=== PATIENT | female | born 1990 | race Two or more races ===

== ENCOUNTER 2024-01-12 15:24 | Emergency (ER) | payer MEDICAID ==
[~2024-01-12] VITALS: Ht 157.5 cm; Wt 98.1 kg
[2024-01-12 15:35] VITALS: BP 151/87; PULSE 81; RESP 16; O2SAT 97
[2024-01-12 16:05] LABS: Urine Amorphous Crystal FEW /hpf (None Seen); Urine Bacteria FEW /hpf (None Seen); Urine Blood Negative /uL (Negative); Urine Clarity CLOUDY (Clear); Urine Color Colorless (Yellow); Urine Protein, UAD Negative (Negative); Urine Specific Gravity 1.014 (1.001-1.035); Urine Urobilinogen Normal (Negative); Urine WBC 22 /hpf (0 - 5)
[2024-01-12 16:19] LABS: Basophils # (auto) 0.1 10 ^3/uL (0-0.2); Basophils % (auto) 0.8 % (0.0-2.0); Eosinophils # (auto) 0.3 10 ^3/uL (0-0.8); Eosinophils % (auto) 3.1 % (0.0-7.0); Hematocrit 44.1 % (36.0-46.0); Hemoglobin 14.9 g/dL (12.2-16.2); Lymphocytes # (auto) 3.3 10 ^3/uL (0.4-5.4); Lymphocytes % (auto) 32.2 % (10.0-50.0); Mean Corpuscular Hemoglobin 30.9 pg (28.0-32.0); Mean Corpuscular Hgb Conc. 33.8 g/dL (32.0-36.0); Mean Corpuscular Volume 91.6 fL (80.0-100.0); Monocytes # (auto) 0.6 10 ^3/uL (0-1.3); Neutrophils % (auto) 57.9 % (37.0-80.0); Nucleated Red Blood Cells % 0.1 %; Red Blood Cells 4.81 10^6/uL (4.0-5.20); Red Cell Distribution Width 12.8 % (11.8-14.3); White Blood Cell 10.3 10^3/uL (4.4-10.8)
[2024-01-12 16:55] LABS: Alanine Aminotransferase 64 U/L (7-40); Albumin 4.5 g/dL (3.2-4.8); Alkaline Phosphatase 82 U/L (46-116); Anion Gap 8 (5-15); Aspartate Aminotransferase 28 U/L (13-40); BUN/Creatinine Ratio 11.9 (10.0-20.0); Bilirubin, Total 0.3 mg/dL (0.2-1.0); Blood Urea Nitrogen 7 mg/dL (9-23); Calcium 9.6 mg/dL (8.5-10.1); Carbon Dioxide 23 mmol/L (20-30); Chloride 106 mmol/L (98-107); Glucose 172 mg/dL (74-106); Potassium 3.8 mmol/L (3.5-5.1); Sodium 137 mmol/L (136-145); Total Protein 7.2 g/dL (5.7-8.2)
[2024-01-12] MEDS ORDERED: CEPH500C PO (19:11)
[2024-01-12] MEDS: ONDANSETRON ODT 4 MG TAB PO ONE (21:32)
[2024-01-12] MEDS: ACETAMINOPHEN 500 MG TAB PO ONE (21:32)
== END 2024-01-12 21:32 | disposition home or self-care (01) ==
LOC: ER 15:24
DX: N39.0 Urinary tract infection, site not specified (principal); R10.2 Pelvic and perineal pain
CPT/HCPCS: 36415; 80053; 81001; 81025; 84702; 85025

== ENCOUNTER 2024-03-17 11:26 | Emergency (ER) | payer MEDICAID ==
[~2024-03-17] VITALS: Ht 152.4 cm; Wt 97.1 kg
[~2024-03-17 11:26] MED LIST: CEPH500C PO
[2024-03-17 12:06] LABS: Urine Blood 3+ /uL (Negative); Urine Clarity Ex.Turbid (Clear); Urine Color RED (Yellow); Urine Protein, UAD 1+ (Negative); Urine Specific Gravity 1.012 (1.001-1.035); Urine Urobilinogen Normal (Negative); Urine pH 5.5 (5.0-9.0)
[2024-03-17 12:07] LABS: Urine Bacteria 2+ /hpf (None Seen); Urine WBC 20 /hpf (0 - 5)
[2024-03-17 12:31] LABS: Basophils # (auto) 0.1 10 ^3/uL (0-0.2); Basophils % (auto) 0.7 % (0.0-2.0); Eosinophils # (auto) 0.2 10 ^3/uL (0-0.8); Eosinophils % (auto) 2.4 % (0.0-7.0); Hematocrit 41.6 % (36.0-46.0); Lymphocytes # (auto) 2.9 10 ^3/uL (0.4-5.4); Lymphocytes % (auto) 34.8 % (10.0-50.0); Mean Corpuscular Hemoglobin 30.7 pg (28.0-32.0); Mean Corpuscular Hgb Conc. 33.6 g/dL (32.0-36.0); Mean Corpuscular Volume 91.3 fL (80.0-100.0); Monocytes # (auto) 0.6 10 ^3/uL (0-1.3); Monocytes % (auto) 6.6 % (0.0-12.0); Neutrophils # (auto) 4.6 10 ^3/uL (1.6-8.6); Neutrophils % (auto) 55.5 % (37.0-80.0); Red Blood Cells 4.56 10^6/uL (4.0-5.20); Red Cell Distribution Width 12.7 % (11.8-14.3); White Blood Cell 8.3 10^3/uL (4.4-10.8)
[2024-03-17] MEDS: ONDANSETRON ODT 4 MG TAB PO ONE (12:36)
[2024-03-17] MEDS: MORPHINE SULFATE INJ 2 MG/ml SYRG IM ONE (12:43)
[2024-03-17 12:45] LABS: Alanine Aminotransferase 56 U/L (7-40); Albumin 4.5 g/dL (3.2-4.8); Alkaline Phosphatase 60 U/L (46-116); Anion Gap 6 (5-15); Aspartate Aminotransferase 35 U/L (13-40); Bilirubin, Total 0.4 mg/dL (0.2-1.0); Calcium 9.2 mg/dL (8.5-10.1); Carbon Dioxide 26 mmol/L (20-30); Chloride 106 mmol/L (98-107); Glucose 93 mg/dL (74-106); Potassium 3.9 mmol/L (3.5-5.1); Sodium 138 mmol/L (136-145); Total Protein 7.4 g/dL (5.7-8.2)
[2024-03-17 13:04] LABS: INR 0.99 (0.9-1.15); Partial Thromboplastin Time 30.3 SEC (24.5-34.5); Prothrombin Time 10.5 sec (9.3-11.8)
[2024-03-17 13:10] LABS: BUN/Creatinine Ratio 8.5 (10.0-20.0); Blood Urea Nitrogen < 5 mg/dL (9-23)
[2024-03-17] MEDS ORDERED: PHEN95TA10 PO (15:36)
[2024-03-17] MEDS ORDERED: CEPH500T PO (15:36)
[2024-03-17] MEDS ORDERED: IBUP-1455 PO (15:36)
[2024-03-17 16:00] VITALS: BP 120/73; PULSE 70; RESP 18; TEMP 98.9; O2SAT 100
== END 2024-03-17 16:30 | disposition home or self-care (01) ==
LOC: ER 11:26
DX: N39.0 Urinary tract infection, site not specified (principal); R10.2 Pelvic and perineal pain; N93.8 Other specified abnormal uterine and vaginal bleeding; Z32.02 Encounter for pregnancy test, result negative
CPT/HCPCS: 36415; 76801; 76817; 80053; 81001; 84702; 85025; 85610; 85730; 96372; 99285; J2270; Q0162